=== PATIENT | female | born 2000 | race Caucasian/White ===

== ENCOUNTER → 2021-10-28 | Outpatient (CLI) | payer OTHER ==
[2021-10-30 07:09] LABS: BANANA ALLERGEN COUNT 1.94 kU/L (()); GRAPE ALLERGEN COUNT 0.16 kU/L (())
[2021-10-30 07:10] LABS: ALMOND ALLERGEN IGE COUNT 0.23 kU/L (()); PECAN ALLERGEN IGE COUNT <0.10 kU/L (()); SESAME SEED ALLERGEN IGE COUNT 1.77 kU/L (())
== END ==
LOC: COL.LAB 11:30
PROVIDERS: Family Medicine
DX: M26.629 Arthralgia of temporomandibular joint, unspecified side (principal); Z91.018 Allergy to other foods